=== PATIENT | female | born 1965 | race Two or more races ===

== ENCOUNTER 2017-06-05 12:33 | Inpatient (IN) | payer MEDICAID ==
[~2017-06-05] VITALS: Ht 154.9 cm; Wt 79.5 kg
[2017-06-05] MEDS ORDERED: SODIUM CHLORIDE 0.9% 500 ML IVB ONE (12:50)
[2017-06-05] MEDS ORDERED: PANTOPRAZOLE 40 MG/10 ML VIAL IV STA (12:50)
[2017-06-05] MEDS ORDERED: MORPHINE SULFATE 4 MG/ML SYR/VIAL IV ONE (13:00)
[2017-06-05] MEDS ORDERED: ONDANSETRON HCL 4 MG/2 ML VIAL IV ONE (13:00)
[2017-06-05 13:27] LABS: Hematocrit 25.3 % (36.0-46.0); Hemoglobin 7.1 g/dL (12.2-16.2); Mean Corpuscular Hemoglobin 16.7 pg (28.0-32.0); Mean Corpuscular Hgb Conc. 27.9 g/dL (32.0-36.0); Mean Corpuscular Volume 59.7 fL (80.0-100.0); Platelet Count (auto) 442 10^3/uL (140-450); Red Blood Cells 4.23 10^6/uL (4.0-5.20)
[2017-06-05 13:47] LABS: Albumin 3.8 g/dL (3.4-5.0); BUN/Creatinine Ratio 15.8; Bilirubin, Total 0.5 mg/dL (0.2-1.0); Calcium 9.2 mg/dL (8.5-10.1); Potassium 4.6 mmol/L (3.5-5.1)
[2017-06-05 13:50] LABS: Red Cell Distribution Width 26.7 % (11.8-14.3)
[2017-06-05 13:52] LABS: Basophils % (manual) 0 (0.0-2.0); Metamyelocytes % 0; Monocytes % (manual) 0 (0-12)
[2017-06-05 13:53] LABS: Blast Cells 0; Myelocytes % 0; Promyelocytes % 0; Reactive Lymphocytes 0
[2017-06-05 13:55] LABS: Band Neutrophils % (manual) 2; Eosinophils % (manual) 2 (0-7); Lymphocytes % (manual) 2 (10.0-50.0)
[2017-06-05] MEDS ORDERED: ONDANSETRON HCL 4 MG/2 ML VIAL IV PRN (14:45)
[2017-06-05] MEDS ORDERED: LEVOFLOXACIN 500MG 100 ML IV ONE (14:45)
[2017-06-05] MEDS ORDERED: MORPHINE SULFATE 4 MG/ML SYR/VIAL IV PRN ×2 (14:45)
[2017-06-05] MEDS ORDERED: NITROGLYCERIN 0.4 MG SL TAB SL PRN (14:45)
[2017-06-05] MEDS ORDERED: PANTOPRAZOLE 40 MG/10 ML VIAL IV ONE (14:45)
[2017-06-05 16:20] LABS: Lactic Acid w/Reflex 2.7 mmol/L (0.4-2.0)
[2017-06-05] MEDS: SODIUM CHLORIDE 0.9% 1,000 ML IV SCH ×2 (18:30→22:45)
[2017-06-05 18:45] LABS: Urine Bacteria NONE SEEN /hpf (None Seen); Urine Blood Negative /uL (Negative); Urine Specific Gravity 1.007 (1.001-1.035); Urine WBC 1 /hpf (0 - 5)
[2017-06-05] MEDS ORDERED: diphenhdrAMINE HCL 25 MG CAP PO ONE (21:00)
[2017-06-05 22:00] VITALS: BP 138/83
[2017-06-05] MEDS: metroNIDAZOLE 500MG/100ML 100 ML IV SCH (22:40)
[2017-06-06] VITALS (15 sets, daily range): BP systolic 110–144; BP diastolic 58–83
[2017-06-06] MEDS: SODIUM CHLORIDE 0.9% 1,000 ML IV SCH ×3 (06:14→21:29)
[2017-06-06] MEDS: metroNIDAZOLE 500MG/100ML 100 ML IV SCH ×3 (06:14→21:29)
[2017-06-06 07:59] LABS: Basophils # (auto) 0.1 uL; Eosinophils # (auto) 0.5 uL; INR 0.98 (0.9-1.15); Lymphocytes # (auto) 1.3 uL; Nucleated Red Blood Cells % 0.3 %; Partial Thromboplastin Time 21.6 sec (22.64-33.71); Prothrombin Time 10.7 sec (9.37-12.3)
[2017-06-06 08:01] LABS: Basophils % (auto) 0.6 % (0.0-2.0); Eosinophils % (auto) 5.8 % (0.0-7.0); Hematocrit 21.1 % (36.0-46.0); Mean Corpuscular Hgb Conc. 28.6 g/dL (32.0-36.0); Mean Corpuscular Volume 59.6 fL (80.0-100.0); Monocytes # (auto) 0.6 uL; Monocytes % (auto) 7.6 % (0.0-12.0); Platelet Count (auto) 333 10^3/uL (140-450); Red Blood Cells 3.55 10^6/uL (4.0-5.20); White Blood Cell 8.4 10^3/uL (4.4-10.8)
[2017-06-06 08:03] LABS: Potassium 3.9 mmol/L (3.5-5.1)
[2017-06-06 08:10] LABS: BUN/Creatinine Ratio 14.5; Calcium 8.4 mg/dL (8.5-10.1)
[2017-06-06 08:14] LABS: Red Cell Distribution Width 26.5 % (11.8-14.3)
[2017-06-06] MEDS ORDERED: LIDOCAINE VISCOUS 2% 15ML UD ONE (08:45)
[2017-06-06] MEDS ORDERED: diphenhdrAMINE HCL 50 MG/1 ML VL ONE (08:45)
[2017-06-06] MEDS ORDERED: fentaNYL CITRATE 100 MCG/2 ML VL ONE (08:45)
[2017-06-06] MEDS ORDERED: MIDAZOLAM HCL 5 MG/ML-1ML VIAL ONE (08:45)
[2017-06-06] MEDS: PANTOPRAZOLE 40 MG/10 ML VIAL IV SCH (09:41)
[2017-06-06] MEDS: LEVOFLOXACIN 500MG 100 ML IV SCH (09:41)
[2017-06-06 22:32] LABS: Basophils # (auto) 0.1 uL; Lymphocytes # (auto) 1.2 uL; Mean Corpuscular Hemoglobin 20.1 pg (28.0-32.0); Mean Corpuscular Hgb Conc. 30.5 g/dL (32.0-36.0); Monocytes # (auto) 0.8 uL; Neutrophils % (auto) 69.3 % (37.0-80.0); White Blood Cell 7.9 10^3/uL (4.4-10.8)
[2017-06-06 22:35] LABS: Basophils % (auto) 0.9 % (0.0-2.0); Eosinophils # (auto) 0.3 uL; Eosinophils % (auto) 4.2 % (0.0-7.0); Hematocrit 27.2 % (36.0-46.0); Hemoglobin 8.3 g/dL (12.2-16.2); Lymphocytes % (auto) 15.7 % (10.0-50.0); Mean Corpuscular Volume 65.9 fL (80.0-100.0); Monocytes % (auto) 9.9 % (0.0-12.0); Neutrophils # (auto) 5.5 uL; Nucleated Red Blood Cells % 0.1 %; Platelet Count (auto) 311 10^3/uL (140-450); Red Blood Cells 4.13 10^6/uL (4.0-5.20)
[2017-06-06 22:41] LABS: Red Cell Distribution Width 32.7 % (11.8-14.3)
[2017-06-07] MEDS: SODIUM CHLORIDE 0.9% 1,000 ML IV SCH ×2 (02:50→05:40)
[2017-06-07 05:00] VITALS: BP 132/76
[2017-06-07] MEDS: metroNIDAZOLE 500MG/100ML 100 ML IV SCH ×2 (05:40→13:42)
[2017-06-07 06:37] LABS: Basophils # (auto) 0.1 uL; Hematocrit 27.4 % (36.0-46.0); Hemoglobin 8.4 g/dL (12.2-16.2); Lymphocytes # (auto) 1.3 uL; Mean Corpuscular Hgb Conc. 30.7 g/dL (32.0-36.0); Mean Corpuscular Volume 65.6 fL (80.0-100.0); Neutrophils # (auto) 5.3 uL; Red Blood Cells 4.18 10^6/uL (4.0-5.20); White Blood Cell 7.8 10^3/uL (4.4-10.8)
[2017-06-07 06:42] LABS: INR 0.98 (0.9-1.15); Partial Thromboplastin Time 23.6 sec (22.64-33.71); Prothrombin Time 10.7 sec (9.37-12.3)
[2017-06-07 06:44] LABS: Basophils % (auto) 0.8 % (0.0-2.0); Eosinophils # (auto) 0.5 uL; Mean Corpuscular Hemoglobin 20.1 pg (28.0-32.0); Monocytes # (auto) 0.7 uL; Monocytes % (auto) 9.4 % (0.0-12.0); Neutrophils % (auto) 67.8 % (37.0-80.0); Nucleated Red Blood Cells % 0.2 %; Platelet Count (auto) 325 10^3/uL (140-450)
[2017-06-07 06:54] LABS: BUN/Creatinine Ratio 14.9; Calcium 8.2 mg/dL (8.5-10.1); Potassium 3.2 mmol/L (3.5-5.1)
[2017-06-07 09:00] VITALS: BP 127/75
[2017-06-07] MEDS: PANTOPRAZOLE 40 MG/10 ML VIAL IV SCH (10:51)
[2017-06-07] MEDS: LEVOFLOXACIN 500MG 100 ML IV SCH (10:52)
[2017-06-07] MEDS: FERROUS SULFATE 325 MG TAB PO SCH ×2 (12:00→18:03)
[2017-06-07] MEDS ORDERED: HYDROcodone-ACET 5/325MG TAB PO PRN (12:15)
[2017-06-07 13:00] VITALS: BP 124/76
[2017-06-07] MEDS ORDERED: POLY33504 PO (13:11)
[2017-06-07] MEDS ORDERED: LEVO500T21 PO (13:11)
[2017-06-07] MEDS ORDERED: FER325T PO (13:11)
[2017-06-07] MEDS ORDERED: METR500T PO (13:11)
[2017-06-07] MEDS ORDERED: DOCU100C8 PO (13:11)
[2017-06-07 17:02] VITALS: BP 119/59
[2017-06-07] MEDS ORDERED: DOCUSATE SOD 100 MG CAP PO SCH (22:00)
[2017-06-08 10:16] LABS: Folate (Folic Acid) 16.34 ng/mL (5.38-24)
== END 2017-06-07 19:00 | disposition home or self-care (01) | DRG 247 ==
LOC: ER 12:33 → OVERFLOW 12:34 → WEST WING 21:43
PROVIDERS: ADMIT Internal Medicine; ATTEND Internal Medicine
PROC: 0DJ08ZZ Inspection of Upper Intestinal Tract, Via Natural or Artificial Opening Endoscopic (ICD-10-PCS; 2017-06-05)
PROC: 30233N1 Transfusion of Nonautologous Red Blood Cells into Peripheral Vein, Percutaneous Approach (ICD-10-PCS; principal; 2017-06-06 14:22)
DX: K56.7 Ileus, unspecified (principal); R65.10 Systemic inflammatory response syndrome (SIRS) of non-infectious origin without acute organ dysfunction; D62 Acute posthemorrhagic anemia; M41.9 Scoliosis, unspecified; F17.210 Nicotine dependence, cigarettes, uncomplicated; D50.0 Iron deficiency anemia secondary to blood loss (chronic); K52.9 Noninfective gastroenteritis and colitis, unspecified; D25.9 Leiomyoma of uterus, unspecified; K44.9 Diaphragmatic hernia without obstruction or gangrene; N92.0 Excessive and frequent menstruation with regular cycle; Z90.49 Acquired absence of other specified parts of digestive tract
CPT/HCPCS: 36415; 43235; 74018; 74176; 80048; 80053; 81001; 82150; 82607; 82746; 83540; 83605; 83690; 83735; 84702; 85007; 85025; 85027; 85610; 85730; 86850; 86900; 86901; 86920; 87040; 93005; 94761; 96361; 96365; 96375; C9113; J1956; J2250; J2405; J3490

== ENCOUNTER 2023-07-27 18:51 | Emergency (ER) | payer MEDICAID ==
[~2023-07-27 18:51] MED LIST: DOCU-265 PO; FER325T PO; LEVO500T31 PO; METR500T PO; POLY33504 PO
== END 2023-07-27 20:28 | disposition left against medical advice (07) ==
LOC: ER 18:51
DX: R07.0 Pain in throat (principal); Z53.21 Procedure and treatment not carried out due to patient leaving prior to being seen by health care provider

== ENCOUNTER 2024-11-19 04:53 | Inpatient (IN) | payer MEDICAID ==
[~2024-11-19] VITALS: Ht 154.9 cm; Wt 94.0 kg
--- NOTE | 2024-11-19 06:19 | ECG ---
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
--- NOTE | 2024-11-19 06:22 | ECG ---
[facility] Test Date: 2024-11-19 Test Time: 05:09:25 Pat Name: KASHMIR FRIEDMAN Department: ED Room: 0273T Gender: F Lump Maker: lesly : 1965 Requested By: GENEVIEVE DEGROOT Order Number: [id number] Reading MD: Robert Lopez Measurements Intervals [place] Rate: 63 P: 41 SC: 162 QRS: -39 QRSD: 97 T: 29 QT: 434 QTc: 445 Interpretive Statements Sinus rhythm Left axis deviation Abnormal R-wave progression, late transition Electronically Signed On 11-20-2024 18:46:40 PDT by Robert Lopez Please click the below link to view image of tracing.
[2024-11-19 06:39] VITALS: PULSE 64; RESP 16; O2SAT 95
--- NOTE | 2024-11-19 07:50 | ED.PDOC ---
HPI Comments 59 y/o F, BIBA, with PMHx of anemia presents to the ED for CC of chest pain. EMS reports, patient is coming from home where she c/o left sided chest pain that radiates to her back sudden onset, 0430 this morning (11/19/24). Patient relays, pain was so intense it woke her up out of her sleep. In route to the ED, patient's blood pressure was elevated at 143/87mmHg with all other VSS. Patient was given 8mg of Nitro in the field and endorses experiencing relief, with pain going from an 8/10 to a 4/10. Patient denies shortness of breath, flu-like symptoms, nausea, vomiting, dizziness, weakness, or fatigue. No other symptoms or modifying factors are present at this time. Chief Complaint: Chest Pain Time Seen by MD: 06:30 Reviewed Notes: Nurses Notes, Camera Tuning Engineer Notes, Medications, Allergies Allergies: Coded Allergies: NO KNOWN ALLERGIES (Unverified , 06/05/17) Home Meds Active Scripts Polyethylene Glycol (MIRALAX 17GM PWD) 17 Gm Pw, 17 GM PO DAILY PRN, #14 DOSE Prov:VIRGINIA LU MD 06/07/17 Metronidazole (Flagyl) 500 Mg Tab, 500 MG PO TID, #21 TAB Prov:VIRGINIA LU MD 06/07/17 Levofloxacin (Levaquin) 500 Mg Tab, 500 MG PO DAILY, #7 TAB Prov:VIRGINIA LU MD 06/07/17 Docusate Sodium (Docusate Sodium) 100 Mg Cap, 100 MG PO BID, #60 CAP Prov:VIRGINIA LU MD 06/07/17 Ferrous Sulfate (Ferrous Sulfate) 325 Mg Tab, 325 MG PO TIDWM, #90 TAB Prov:VIRGINIA LU MD 06/07/17 Information Source: Patient, Emergency Med Personnel Mode of Arrival: EMS Severity: Moderate Timing: Hours Duration: Hours Prehospital treatment: None Location: Chest (L) Radiation: Back Onset: At Rest Cardiac Risk Factors: Smoker PE Risk Factors: None History of: None Modifying Factors: Nothing Associated Signs and Symptoms: None Past Medical History PAST MEDICAL HISTORY: Anemia Surgical History: BTL, Cholecystectomy ASSOCIATE 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 History: No Pertinent 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 History Family History Family History: Unknown Social History Smoker: Cigarettes Alcohol: Denies ETOH Use Drugs: Denies Drug Use Lives In: Home Constitutional: denies: chills, diaphoresis, fatigue, fever, malaise, sweats, weakness, others EENTM: denies: blurred vision, double vision, ear bleeding, ear discharge, ear drainage, ear pain, ear ringing, eye pain, eye redness, hearing loss, mouth pain, mouth swelling, nasal discharge, nose bleeding, nose congestion, nose pain, photophobia, tearing, throat pain, throat swelling, voice changes, others Respiratory: denies: cough, hemoptysis, orthopnea, SOB at rest, shortness of breath, SOB with excertion, stridor, wheezing, others Cardiovascular: reports: chest pain; denies: dizzy spells, diaphoresis, Dyspnea on exertion, edema, irregular heart beat, left arm pain, lightheadedness, palpitations, PND, syncope, others Gastrointestinal: denies: abdomen distended, abdominal pain, blood streaked bowels, constipated, diarrhea, dysphagia, difficulty swallowing, hematemesis, melena, nausea, poor appetite, poor fluid intake, rectal bleeding, rectal pain, vomiting, others Genitourinary: denies: abnormal vagina bleeding, burning, dyspareunia, dysuria, flank pain, frequency, hematuria, incontinence, pain, , vagina discharge, urgency, others Neurological: denies: dizziness, fainting, headache, left sided numbness, left sided weakness, numbness, paresthesia, pre-existing deficit, right sided numbness, right sided weakness, seizure, speech problems, tingling, tremors, weakness, others Musculoskeletal: denies: back pain, gout, joint pain, joint swelling, muscle pain, muscle stiffness, neck pain, others Integumetry: denies: bruises, change in color, change in hair/nails, dryness, laceration, lesions, lumps, rash, wounds, others Allergic/Immunocompromised: denies: Difficulty Healing, Frequent Infections, Hives, Itching, others Hematologic/Lymphatic: denies: anemia, blood clots, easy bleeding, easy bruising, swollen glands, others Endocrine: denies: excessive hunger, excessive sweating, excessive thirst, excessive urination, flushing, intolerance to cold, intolerance to heat, unexplained weight gain, unexplained weight loss, others Psychiatric: denies: anxiety, bipolar disorder, depression, hopeless, panic disorder, schizophrenia, sleepless, suicidal, others All Other Systems: Reviewed and Negative Physical Exam General Appearance: Moderate Distress HEENT: Normal ENT Inspection, Pharynx Normal, TMs Normal Neck: Full Range of Motion, Non-Tender, Normal, Normal Inspection Respiratory: Chest Non-Tender, Lungs Clear, No Accessory Muscle Use, No Respiratory Distress, Normal Breath Sounds Cardiovascular: No Edema, No JVD, No Murmur, No Gallop, Normal Peripheral Pulses, Regular Rate/Rhythm Breast Exam: Deferred Gastrointestinal: No Organomegaly, Non Tender, No Pulsatile Mass, Normal Bowel Sounds, Soft Genitalia: Deferred Pelvic: Deferred Rectal: Deferred Extremities: No calf tenderness, Normal capillary refill, Normal inspection, Normal range of motion, Non-tender, No pedal edema Musculoskeletal : Apperance: Normal Neurologic: Alert, cloth printing back tender II-XII nml as Tested, No Motor Deficits, Normal Affect, Normal Mood, No Sensory Deficits Cerebellar Function: Normal Reflexes: Normal Skin: Dry, Normal Color, Warm Peripheral Pulses: 3+ Radial (R), 3+ Radial (L) Lymphatic: No Adenopathy EKG EKG : Pulse Rate (adult): 63 Cardiac Rhythm: NSR Was a procedure done? Was a procedure done?: No CP Differential Dx Differential Diagnosis: A-fib, A-Flutter, Angina, Anxiety / Panic Attack, Atrial Dysrhythmia, Electrolyte Disorder Differential Diagnosis: Chest Wall Pain, Costochondritis, Esophageal reflux/spasm, Gastritis X-Ray, Labs, Meds, VS Vital Signs Date Time Temp Pulse Resp B/P (MAP) Pulse Ox O2 Delivery O2 Flow Rate FiO2 11/19/24 06:39 64 16 95 Room Air* 0 21 11/19/24 06:17 61 11/19/24 05:09 63 11/19/24 04:58 98.8 71 25 143/87 95 98.8 Lab Test 11/19/24 08:17 11/19/24 06:11 11/19/24 05:05 Range/Units White Blood Count Pending Red Blood Count Pending Hemoglobin Pending Hematocrit Pending Mean Corpuscular Volume Pending Mean Corpuscular Hemoglobin Pending Mean Corpuscular Hemoglobin Concent Pending Red Cell Distribution Width Pending Platelet Count Pending Mean Platelet Volume Pending Neutrophils (%) (Auto) Pending Lymphocytes (%) (Auto) Pending Monocytes (%) (Auto) Pending Basophils (%) (Auto) Pending Neutrophils # (Auto) Pending Lymphocytes # (Auto) Pending Monocytes # (Auto) Pending Sodium Level Pending Potassium Level Pending Chloride Level Pending Carbon Dioxide Level Pending Anion Gap Pending Blood Urea Nitrogen Pending Creatinine Pending Glomerular Filtration Rate Calc Pending BUN/Creatinine Ratio Pending Serum Glucose Pending Calcium Level Pending Troponin I High Sensitivity Pending < 3 L < 3 L </=34 ng/L Patient alert. Complaining of chest pain. Vitals stable. Answering questions. EKG reviewed does not show any acute changes. Cardiac marker within normal limits. Was given aspirin. Was given nitro. Counseled patient on effects of smoking cigarettes for 15 minutes. Has risk factors for coronary artery disease. Echocardiogram. Stress test. Explained to the patient. Continue to monitor. Time of 1ST Reevaluation: 07:00 Reevaluation 1ST: Unchanged Patient Education/Counseling: Diagnosis, Treatment Family Education/Counseling: No Family Present SEPSIS Sepsis Screen Date sepsis recognized/suspect: Nov 19, 2024 Time Sepsis recognized/suspect: 639 Recent Procedure: No On Antibiotic Therapy: No Respiratory Rate >20: No Heart Rate >90: No Temp<36 C (96.8 F) or >38.3 C: No SBP <90 or MAP <65 mmHG: No New Acute Mental Status Change: No Is the patient on CPAP, BIPAP,: No Physician Orders Troponin-I Hs (11/19/24 07:56) Electrocardigram (11/19/24 07:56) Complete Blood Count (11/19/24 07:20) Urinalysis (11/19/24 07:20) Basic Metabolic Panel (11/19/24 07:20) Vital Signs Date Time Temp Pulse Resp B/P (MAP) Pulse Ox O2 Delivery O2 Flow Rate FiO2 11/19/24 06:39 64 16 95 Room Air* 0 21 11/19/24 06:17 61 11/19/24 05:09 63 11/19/24 04:58 98.8 71 25 143/87 95 98.8 Laboratory Tests Test 11/19/24 08:17 White Blood Count Pending Departure 1 Departure Time of Disposition: 08:45 Impression: Primary Impression: Chest pain of unknown etiology Disposition: 09 ADMITTED INPATIENT Admit to: Med Surg Condition: Guarded Critical Care Note Critical Care Time?: Yes (90 min-critical care time only) Stability Stability form required: No Heart Score Heart Score: Heart Score Response (Comments) Value History Slightly Suspicious 0 EKG Normal 0 Age 45-64 1 Risk Factors 1 or 2 risk factors 1 Troponin N/A 0 Total 2 I personally scribed for RK MOREIRA MD ([email or web address]) on 11/19/24 at 07:50. E lectronically submitted by Stephanie Rand ([email or web address]). I personally scribed for RK MOREIRA MD ([email or web address]) on 11/19/24 at 07:59. Electronically submitted by Stephanie Rand ([email or web address]). RK MOREIRA MD Nov 19, 2024 07:50
[2024-11-19 08:49] LABS: Hematocrit 44.5 % (36.0-46.0); Hemoglobin 15.0 g/dL (12.2-16.2); Mean Corpuscular Hemoglobin 28.3 pg (28.0-32.0); Mean Corpuscular Volume 84.0 fL (80.0-100.0); Nucleated Red Blood Cells % 0.0 %
[2024-11-19 08:56] LABS: Chloride 106 mmol/L (98-107); Potassium 4.0 mmol/L (3.5-5.1); Sodium 141 mmol/L (136-145)
[2024-11-19 08:57] LABS: Anion Gap 10 (5-15); Calcium 9.5 mg/dL (8.7-10.4); Carbon Dioxide 25 mmol/L (20-31)
[2024-11-19 09:02] LABS: BUN/Creatinine Ratio 24.6 (10.0-20.0); Blood Urea Nitrogen 15 mg/dL (9-23); Glucose 98 mg/dL (74-106)
--- NOTE | 2024-11-19 09:22 | DVH ---
CHEST RADIOGRAPH Indication: sob Technique: Single frontal view of the chest was obtained COMPARISON: None FINDINGS: Lines and Tubes: None Lungs: Clear Pleura: No effusion. No pneumothorax. Cardiomediastinal contours: Unremarkable Bones: Unremarkable IMPRESSION: No acute disease.
[2024-11-19] MEDS: NITROGLYCERIN 0.4 MG SL TAB SL ONE (12:27)
[2024-11-19] MEDS ORDERED: ONDANSETRON HCL 4 MG/2 ML VIAL IV PRN (13:45)
[2024-11-19] MEDS ORDERED: ATOR20TA50 PO (13:45)
[2024-11-19] MEDS ORDERED: GABA-1250 PO (13:45)
[2024-11-19] MEDS ORDERED: CITA-77 PO (13:45)
[2024-11-19] MEDS ORDERED: NITROGLYCERIN 0.4 MG SL TAB SL PRN (13:45)
[2024-11-19] MEDS ORDERED: IBUP-1455 PO (13:45)
[2024-11-19] MEDS ORDERED: LOSA100T33 PO (13:45)
[2024-11-19] MEDS ORDERED: IBUPROFEN 800 MG TAB PO PRN (13:45)
[2024-11-19] MEDS ORDERED: ATEN25TA PO (13:45)
[2024-11-19] MEDS ORDERED: DOCUSATE SOD 100 MG CAP PO PRN (13:45)
[2024-11-19] MEDS ORDERED: MORPHINE SULFATE INJ 2 MG/ml SYRG IV PRN (13:45)
[2024-11-19] MEDS ORDERED: HYDROcodone-ACET 5/325MG TAB PO PRN (13:45)
--- NOTE | 2024-11-19 13:56 | DVHHP2 ---
History of Present Illness Reason for Visit: Chest pain History of Present Illness Mary Ellen Serrano is a 59-year-old female with past medical history of hypertension, hyperlipidemia, and anxiety, who came to the hospital with chest pain. Patient woke up to left sided chest pain that radiates to her left shoulder this morning. She states she has never had pain like this before. She also states her son recently, had a heart attack at the age of 37, so she became scared and came to the hospital to be evaluated. Currently she states her pain is improved, it feels more like an ache at this time. Cardiovascular: HTN, hyperipidemia Psych: Anxiety Past Surgical History: Cholecystectomy, Hysterectomy, Tubal Ligation Smoke: Quit (1 year ago) ALCOHOL: none Drugs: None Lives: Friends Domestic Violence: Neg Review of Systems Constitutional: No: Fever, Chills, Sweats, Weakness, Malaise, Other Eyes: No: Pain, Vision change, Conjunctivae inflammation, Eyelid inflammation, Other, Redness ENT: No: Ear pain, Ear discharge, Nose pain, Nose discharge, Nose congestion, Mouth pain, Mouth swelling, Throat pain, Throat swelling, Other Respiratory: No: Cough, Dry, Shortness of breath, SOB with excertion, Wheezing, Hemoptysis, Pleuritic Pain, Sputum, Wheezing, Other Cardiovascular: Chest Pain (radiated to left shoulder); No: Palpitations, Orthopnea, Paroxysmal Noc. Dyspnea, Edema, Lt Headedness, Other Gastrointestinal: No: Nausea, Vomiting, Abdominal Pain, Diarrhea, Constipation, Melena, Hematochezia, Other Genitourinary: No Dysuria, No Frequency, No Incontinence, No Hematuria, No Retention, No Other Musculoskeletal: No: other, neck pain, shoulder pain, arm pain, back pain, hand pain, leg pain, foot pain Skin: No: Rash, Lesions, Jaundice, Bruising, Other Neurological: No: Weakness, Numbness, Incoordination, Change in speech, Confusion, Seizures, Other Allergies: Coded Allergies: NO KNOWN ALLERGIES (Unverified , 06/05/17) Medications Current Medications Medications Dose Ordered Sig/Mechelle Route Start Time Stop Time Status Last Admin Dose Admin Sodium Chloride 10 ml Q8HR IV 11/19/24 14:00 UNV Acetaminophen/ Hydrocodone Bitart 1 tab Q4HP PRN PO 11/19/24 13:45 UNV Ondansetron HCl 4 mg Q4HP PRN IV 11/19/24 13:45 UNV Docusate Sodium 100 mg BIDPRN PRN PO 11/19/24 13:45 UNV Acetaminophen 650 mg Q6HP PRN PO 11/19/24 13:45 UNV Nitroglycerin 0.4 mg Q5MINP PRN SL 11/19/24 13:45 UNV Morphine Sulfate 2 mg Q30M PRN IV 11/19/24 13:45 UNV Atenolol 25 mg DAILY PO 11/20/24 10:00 UNV Atorvastatin Calcium 20 mg DAILY PO 11/20/24 10:00 UNV Citalopram Hydrobromide 20 mg DAILY PO 11/20/24 10:00 UNV Ibuprofen 800 mg BIDPRN PRN PO 11/19/24 13:45 UNV Patient Own Medication 1 tab DAILY PO 11/20/24 10:00 UNV Exam Vital Signs Vital Signs Date Time Temp Pulse Resp B/P (MAP) Pulse Ox O2 Delivery O2 Flow Rate FiO2 11/19/24 12:29 68 16 160/90 (113) 96 11/19/24 06:39 Room Air* 0 21 11/19/24 04:58 98.8 98.8 General Appearance: Alert, Oriented X3, Cooperative, mild distress HEENT: Atraumatic, PERRLA Respiratory: Clear to auscultation, Normal air movement Cardiovascular: Regular rate, Normal S1, Normal S2, No murmurs Abdominal: Normal bowel sounds, Soft, No tenderness, No hepatospenomegaly Extremities: No clubbing, No cyanosis, No edema, Normal pulses Skin: No rashes, No breakdown, No significant lesion Neuro: Normal gait, Normal speech, Strength at 5/5 X4 ext Psych/Mental Status: Mental status NL, Mood NL Labs/Xrays Labs Test 11/19/24 08:17 Range/Units White Blood Count 8.5 4.4-10.8 10^3/uL Red Blood Count 5.30 H 4.0-5.20 10^6/uL Hemoglobin 15.0 12.2-16.2 g/dL Hematocrit 44.5 36.0-46.0 % Mean Corpuscular Volume 84.0 80.0-100.0 fL Mean Corpuscular Hemoglobin 28.3 28.0-32.0 pg Mean Corpuscular Hemoglobin Concent 33.6 32.0-36.0 g/dL Red Cell Distribution Width 14.9 H 11.8-14.3 % Platelet Count 338 140-450 10^3/uL Mean Platelet Volume 8.3 6.9-10.8 fL Neutrophils (%) (Auto) 58.8 37.0-80.0 % Lymphocytes (%) (Auto) 29.7 10.0-50.0 % Monocytes (%) (Auto) 7.1 0.0-12.0 % Eosinophils (%) (Auto) 3.5 0.0-7.0 % Basophils (%) (Auto) 0.9 0.0-2.0 % Neutrophils # (Auto) 5.0 1.6-8.6 10 ^3/uL Lymphocytes # (Auto) 2.5 0.4-5.4 10 ^3/uL Monocytes # (Auto) 0.6 0-1.3 10 ^3/uL Eosinophils # (Auto) 0.3 0-0.8 10 ^3/uL Basophils # (Auto) 0.1 0-0.2 10 ^3/uL Nucleated Red Blood Cells 0.0 % Sodium Level 141 136-145 mmol/L Potassium Level 4.0 3.5-5.1 mmol/L Chloride Level 106 98-107 mmol/L Carbon Dioxide Level 25 20-31 mmol/L Anion Gap 10 5-15 Blood Urea Nitrogen 15 9-23 mg/dL Creatinine 0.61 0.550-1.02 mg/dL Glomerular Filtration Rate Calc 104 >90 mL/min BUN/Creatinine Ratio 24.6 H 10.0-20.0 Serum Glucose 98 74-106 mg/dL Calcium Level 9.5 8.7-10.4 mg/dL Troponin I High Sensitivity < 3 L </=34 ng/L CHEST RADIOGRAPH FINDINGS: Lines and Tubes: None Lungs: Clear Pleura: No effusion. No pneumothorax. Cardiomediastinal contours: Unremarkable Bones: Unremarkable IMPRESSION: No acute disease. SEPSIS Sepsis Screen Date sepsis recognized/suspect: Nov 19, 2024 Time Sepsis recognized/suspect: 639 Recent Procedure: No On Antibiotic Therapy: No Respiratory Rate >20: No Heart Rate >90: No Temp<36 C (96.8 F) or >38.3 C: No SBP <90 or MAP <65 mmHG: No New Acute Mental Status Change: No Is the patient on CPAP, BIPAP,: No Physician Orders Urinalysis (11/19/24 07:20) Chest Portable (11/19/24 08:48) Echo 2d Mode Cardiac Dop (11/19/24 08:48) Admit (11/19/24 13:37) Code Status (11/19/24 13:37) 2 Gm Sodium Diet (11/19/24 Dinner) Sodium Chloride Lock (Saline Lock Ns) (11/19/24 14:00) Hydrocodone-Acet 5/325mg Tab (Glide 5/32 (11/19/24 13:45) Ondansetron Hcl (Zofran) (11/19/24 13:45) Docusate Sodium Capsule (Colace Capsule) (11/19/24 13:45) Complete Blood Count (11/20/24 04:00) Comprehensive Metabolic Panel (11/20/24 04:00) Condition: Serious (11/19/24 13:37) Acetaminophen Tablet (Tylenol Tablet) (11/19/24 13:45) Nitroglycerin Sublingual (Ntrostat Subli (11/19/24 13:45) Morphine Sulfate Injection (11/19/24 13:45) Stat Ekg For Chest Pain (11/19/24 13:37) Notify Md Of Changes From Base (11/19/24 13:37) River Tester For 24 Hours (11/19/24 13:37) Emergency Dysrhythmia Protocol (11/19/24 13:37) Rhythm Strips Once Every Shift (11/19/24 13:37) Oxygen By Nasal Cannula (11/19/24 13:37) * Cardiology Consult (11/19/24 13:37) Atenolol Tablet (Tenormin Tablet) (11/20/24 10:00) Atorvastatin (Lipitor) (11/20/24 10:00) Citalopram Tablet (Celexa Tablet) (11/20/24 10:00) Ibuprofen Tablet (Motrin Tablet) (11/19/24 13:45) (Nf) Losartan Potassium & Hydrochlo (Los (11/20/24 10:00) Gabapentin Capsule (Neurontin Capsule) (11/20/24 10:00) Vital Signs Date Time Temp Pulse Resp B/P (MAP) Pulse Ox O2 Delivery O2 Flow Rate FiO2 11/19/24 12:29 68 16 160/90 (113) 96 11/19/24 08:46 63 11/19/24 06:39 64 16 95 Room Air* 0 21 11/19/24 06:17 61 Laboratory Tests Test 11/19/24 08:17 White Blood Count 8.5 10^3/uL (4.4-10.8) Medications Medications Dose Ordered Sig/Mechelle Route Start Time Stop Time Status Last Admin Dose Admin Aspirin 325 mg ONCE ONCE PO 11/19/24 07:30 11/19/24 07:31 DC 11/19/24 12:27 325 MG Assessment/Plan Assessment/Plan Assessment: Chest pain of unknown etiology, R/O ACS, Hypertension, Hyperlipidemia, Plan: Admit to Tele, Cardiology consult, ECHO, Start ASA, Continue statin, Lipid panel, TSH, A1c, Home medications reconciled, Plan discussed with: Patient My Orders Orders - SALVADOR HONG 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 Procedure Category Date Status Time Admit ADMIT 11/19/24 Transmitted 13:37 Code Status CODE 11/19/24 Transmitted 13:37 2 Gm Sodium Diet DIET 11/19/24 Transmitted Dinner Sodium Chloride Lock PHA 11/19/24 Logged (Saline Lock Ns) 14:00 Hydrocodone-Acet PHA 11/19/24 Logged 5/325mg Tab (Glide 13:45 Ondansetron Hcl PHA 11/19/24 Logged (Zofran) 13:45 Docusate Sodium PHA 11/19/24 Logged Capsule (Colace 13:45 Complete Blood Count LAB 11/20/24 Verified 04:00 Comprehensive LAB 11/20/24 Verified Metabolic Panel 04:00 Condition: Serious PAVITHRA 11/19/24 In Process 13:37 Acetaminophen Tablet PHA 11/19/24 Logged (Tylenol Tablet) 13:45 Nitroglycerin PHA 11/19/24 Logged Sublingual (Ntrostat 13:45 Morphine Sulfate PHA 11/19/24 Logged Injection 13:45 Stat Ekg For Chest [facility] 11/19/24 In Process Pain 13:37 Notify Of Changes [facility] 11/19/24 In Process From Base 13:37 River Tester For PAVITHRA 11/19/24 In Process 24 Hours 13:37 Emergency Dysrhythmia [facility] 11/19/24 In Process Protocol 13:37 Rhythm Strips Once PAVITHRA 11/19/24 In Process Every Shift 13:37 Oxygen By Nasal RT 11/19/24 Transmitted Cannula 13:37 * Cardiology Consult CONS 11/19/24 Transmitted 13:37 Atenolol Tablet PHA 11/20/24 Logged (Tenormin Tablet) 10:00 Atorvastatin (Lipitor) PHA 11/20/24 Logged 10:00 Citalopram Tablet PHA 11/20/24 Logged (Celexa Tablet) 10:00 Ibuprofen Tablet PHA 11/19/24 Transmitted (Motrin Tablet) 13:45 (Nf) Losartan PHA 11/20/24 Transmitted Potassium & Hydrochlo 10:00 Gabapentin Capsule PHA 11/20/24 Transmitted (Neurontin Capsule) 10:00 Date of Service: Nov 19, 2024 Billing Provider: SALVADOR HONG Common Visit Codes: [id number] INP/OBS CARE (MOD) SALVADOR HONG Nov 19, 2024 13:56
[2024-11-19] MEDS: SODIUM CHLOR 0.9% PF (SALINE LOCK) 10ML VIAL/SYR IV SCH (14:02)
--- NOTE | 2024-11-19 14:44 | DVHINCON2 ---
Date Seen: Nov 19, 2024 Referring Physician YONATHAN Rubi Reason for Consultation Chest pain History of Present Illness This is a 59-year-old female who presented to the emergency room via EMS with a chief complaint of chest pain at 4:30 a.m. this morning. The patient reports she awoke from her sleep experiencing chest pain described as left-sided, soreness like, not associated with any other symptoms, and radiating to the left upper extremity, left neck area, and left upper back. Upon EMS arrival she was medicated with ASA 325 mg p.o. x1 and NTG SL 0.8 mg with successful relief of symptoms. At time of assessment, the patient denied any further chest pain. She underwent multiple 12 lead electrocardiograms revealing a sinus rhythm without evidence of acute ischemia. Serial troponin levels are negative. Reports her son had an acute [place] with successful stent placement at 37 y.o. with history of obesity and type I DM. Significant medical history includes hypertension, dyslipidemia, peripheral neuropathy, and obesity. Past Medical History Past medical history reviewed. No other significant than mentioned above. Past Surgical History Hysterectomy BTL Cholecystectomy Family History: FH: diabetes mellitus G8 MOTHER Family History Family history reviewed. See HPI. Denies CV disease from parents or siblings. Social History Denies the use of illicit drugs, alcohol, or tobacco use. Reports a history of tobacco use including five pack years, quit a year ago. Allergies: Coded Allergies: NO KNOWN ALLERGIES (Unverified , 06/05/17) Home Meds Reported Medications Losartan Potassium & Hydrochlo (Losartan Potassium/Hydroc) 1 Tab Tab, 1 TAB PO DAILY, #30 TAB 5 Refills 11/19/24 Gabapentin (Gabapentin) 300 Mg Cap, 1 CAP PO DAILY 11/19/24 Atorvastatin Calcium (ATORVASTATIN CALCIUM) 20 Mg Tab, 1 TAB PO DAILY 11/19/24 Atenolol (Atenolol) 25 Mg Tab, 1 TAB PO DAILY 11/19/24 Ibuprofen Micronized (Ibuprofen) 800 Mg Tab, 1 TAB PO BIDPRN PRN 11/19/24 Citalopram Hydrobromide (Citalopram Hydrobromide) 20 Mg Tab, 1 TAB PO DAILY 11/19/24 Discontinued Scripts Polyethylene Glycol (MIRALAX 17GM PWD) 17 Gm Pw, 17 GM PO DAILY PRN, #14 DOSE Prov:VIRGINIA LU MD 06/07/17 Metronidazole (Flagyl) 500 Mg Tab, 500 MG PO TID, #21 TAB Prov:VIRGINIA LU MD 06/07/17 Levofloxacin (Levaquin) 500 Mg Tab, 500 MG PO DAILY, #7 TAB Prov:VIRGINIA LU MD 06/07/17 Docusate Sodium (Docusate Sodium) 100 Mg Cap, 100 MG PO BID, #60 CAP Prov:VIRGINIA LU MD 06/07/17 Ferrous Sulfate (Ferrous Sulfate) 325 Mg Tab, 325 MG PO TIDWM, #90 TAB Prov:VIRGINIA LU MD 06/07/17 Home Meds Home medications reviewed. Current Medications Current Medications Medications (Trade) Dose Ordered Sig/Mechelle Route PRN Reason Start Time Stop Time Status Last Admin Sodium Chloride (Saline Lock Ns) 10 ml Q8HR IV 11/19/24 14:00 11/19/24 14:02 Acetaminophen/ Hydrocodone Bitart ([place] 5/325MG Tab) 1 tab Q4HP PRN PO MODERATE PAIN (4-6 PAIN SCALE) 11/19/24 13:45 Ondansetron HCl (Zofran) 4 mg Q4HP PRN IV NAUSEA / VOMITING 11/19/24 13:45 Docusate Sodium (Colace Capsule) 100 mg BIDPRN PRN PO FOR CONSTIPATION 11/19/24 13:45 Acetaminophen (Tylenol Tablet) 650 mg Q6HP PRN PO PAIN SCALE 1-3 OR TEMP>100.4 11/19/24 13:45 Nitroglycerin (Ntrostat Sublingual) 0.4 mg Q5MINP PRN SL FOR CHEST PAIN 11/19/24 13:45 Morphine Sulfate 2 mg Q30M PRN IV FOR CHEST PAIN 11/19/24 13:45 Atenolol (Tenormin Tablet) 25 mg DAILY PO 11/20/24 10:00 Atorvastatin Calcium (Lipitor) 20 mg DAILY PO 11/20/24 10:00 Citalopram Hydrobromide (CeleXA TABLET) 20 mg DAILY PO 11/20/24 10:00 Ibuprofen (Motrin Tablet) 800 mg BIDPRN PRN PO PAIN SCALE 1 THRU 6 11/19/24 13:45 Patient Own Medication 1 tab DAILY PO 11/20/24 10:00 UNV Gabapentin (Neurontin Capsule) 300 mg DAILY PO 11/20/24 10:00 Losartan Potassium (Cozaar Tablet) 100 mg DAILY PO 11/20/24 10:00 Hydrochlorothiazide (hydroCHLOROthiazide TABLET) 12.5 mg DAILY PO 11/20/24 10:00 Review of Systems Constitutional: No symptom reported Ears, Nose, & Throat: No symptom reported Eyes: No symptom reported Neurological: No symptoms reported Pulmonary/Respiratory: No symptom reported Cardiovascular: Chest pain Gastrointestinal: No symptom reported Genitourinary: No symptom reported Musculoskeletal: No symptom reported Skin: No symptom reported Psychiatric: No symptom reported Endocrine: No symptom reported Hemotologic/Lymphatic: No symptom reported Vital Signs Vital Signs Date Time Temp Pulse Resp B/P (MAP) Pulse Ox O2 Delivery O2 Flow Rate FiO2 11/19/24 12:29 68 16 160/90 (113) 96 11/19/24 06:39 Room Air* 0 21 11/19/24 04:58 98.8 98.8 Physical Exam General Appearance: Cooperative. Well developed. Obese. In no acute distress Head Exam: Normal inspection Neck Exam: Normal inspection. Non-tender. Normal alignment Pulmonary/Respiratory: Chest non-tender. Clear bilateral breath sounds Cardiovascular/Chest: Regular rate and rhythm. S1, S2. Sinus rhythm. No murmurs. No JVD. Peripheral Pulses: 2+ Radial (R). 2+ Radial (L). 2+ Pedal (R). 2+ Pedal (L) Abdominal Exam: Normal bowel sounds. Soft. Nontender. No hepatospenomegaly. No masses Ankle Exam: Negative ankle edema Lower extremities: Negative lower extremity edema Neuro/Mental Status: A&O x4. Coherent Thoughts/Psych: Normal thought pattern. Appropriate mood and affect. Good judgement and insight Appearance: In no acute distress Skin Exam: Normal inspection. Normal color. Warm. Dry Labs/Diagnostic Data Labs Test 11/19/24 08:17 Range/Units White Blood Count 8.5 4.4-10.8 10^3/uL Red Blood Count 5.30 H 4.0-5.20 10^6/uL Hemoglobin 15.0 12.2-16.2 g/dL Hematocrit 44.5 36.0-46.0 % Mean Corpuscular Volume 84.0 80.0-100.0 fL Mean Corpuscular Hemoglobin 28.3 28.0-32.0 pg Mean Corpuscular Hemoglobin Concent 33.6 32.0-36.0 g/dL Red Cell Distribution Width 14.9 H 11.8-14.3 % Platelet Count 338 140-450 10^3/uL Mean Platelet Volume 8.3 6.9-10.8 fL Neutrophils (%) (Auto) 58.8 37.0-80.0 % Lymphocytes (%) (Auto) 29.7 10.0-50.0 % Monocytes (%) (Auto) 7.1 0.0-12.0 % Eosinophils (%) (Auto) 3.5 0.0-7.0 % Basophils (%) (Auto) 0.9 0.0-2.0 % Neutrophils # (Auto) 5.0 1.6-8.6 10 ^3/uL Lymphocytes # (Auto) 2.5 0.4-5.4 10 ^3/uL Monocytes # (Auto) 0.6 0-1.3 10 ^3/uL Eosinophils # (Auto) 0.3 0-0.8 10 ^3/uL Basophils # (Auto) 0.1 0-0.2 10 ^3/uL Nucleated Red Blood Cells 0.0 % Sodium Level 141 136-145 mmol/L Potassium Level 4.0 3.5-5.1 mmol/L Chloride Level 106 98-107 mmol/L Carbon Dioxide Level 25 20-31 mmol/L Anion Gap 10 5-15 Blood Urea Nitrogen 15 9-23 mg/dL Creatinine 0.61 0.550-1.02 mg/dL Glomerular Filtration Rate Calc 104 >90 mL/min BUN/Creatinine Ratio 24.6 H 10.0-20.0 Serum Glucose 98 74-106 mg/dL Calcium Level 9.5 8.7-10.4 mg/dL Troponin I High Sensitivity < 3 L </=34 ng/L Assessment Chest pain rule out coronary artery disease Rule out structural heart disease Hypertension Dyslipidemia Hx tobacco use Obesity Plan/Recommendation (Dr. Richardson) Heart Score is 4 placing the patient at a moderate risk for major cardiac events. Scheduled for a transthoracic echocardiogram and Cardiolite stress test at first available. In the meantime, continue single antiplatelet therapy and lipid lowering agent as well as chest pain protocol. Monitor ECG changes closely and notify accordingly. Further orders per clinical course. Thank you for allowing us to participate in this patient's care. Please call if you have any questions or concerns. This medical document was created using an electronic medical record system with voice recognition software and computerized dictation system. Although this document has been carefully reviewed, there might still be some phonetic and typographical errors. Occasional wrong-word or ``sound-alike substitutions may have occurred due to the inherent limitations of voice recognition software. These areas are purely typographical due to imperfections of the software programs and do not reflect any compromise in the patient's medical care. Please read the chart carefully and recognize, using context, where these substitutions have occurred. Plan discussed with: Patient, Other NYHA Physical activity limitations: NA Date of Service: Nov 19, 2024 Billing Provider: MANDI RYAN Cardiology Common Codes: 70514-[id number] INP/OBS CARE (High) MANDI RYAN Nov 19, 2024 14:44
[2024-11-19 15:28] VITALS: BP 151/83; PULSE 75; RESP 18; TEMP 97.9; O2SAT 94
[2024-11-19 15:58] LABS: Magnesium 1.8 mg/dL (1.6-2.6); Triglycerides 313.0 mg/dL (< 150)
[2024-11-19 15:59] LABS: Cholesterol 200.0 mg/dL (< 200); HDL Cholesterol 39.0 mg/dL (40-59)
[2024-11-19 19:56] VITALS: BP 146/93; PULSE 81; RESP 18; TEMP 98.2
[2024-11-19] MEDS: ATORVASTATIN 20 MG TAB PO SCH (21:43)
[2024-11-19 22:18] VITALS: BP 140/75; PULSE 74; RESP 17; TEMP 98.1; O2SAT 94
--- NOTE | 2024-11-19 23:40 | DVHINCON2 ---
Date Seen: Nov 19, 2024 Referring Physician YONATHAN Rubi Reason for Consultation Chest pain History of Present Illness This is a 59-year-old female with a PMH of hypertension, dyslipidemia, peripheral neuropathy, and obesity who presented to the ED via EMS with complaint of chest pain at 4:30 a.m. this morning. The patient reports she awoke from her sleep experiencing chest pain described as left-sided, soreness like, not associated with any other symptoms, and radiating to the left upper extremity, left neck area, and left upper back. Upon EMS arrival she was medicated with ASA 325 mg p.o. x1 and NTG SL 0.8 mg with successful relief of symptoms. At time of assessment, the patient denied any further chest pain. She underwent multiple 12 lead electrocardiograms revealing a sinus rhythm without evidence of acute ischemia. Serial troponin levels are negative. Reports her son had an acute [place] with successful stent placement at 39 y.o. with history of obesity and type I DM. Chest x-ray shows NAD. Patient was admitted to the hospital. I am asked to consult on this patient. Past Medical History Past medical history reviewed. No other significant than mentioned above. Past Surgical History Hysterectomy BTL Cholecystectomy Family History: FH: diabetes mellitus G8 MOTHER Allergies: Coded Allergies: NO KNOWN ALLERGIES (Unverified , 06/05/17) Home Meds Reported Medications Losartan Potassium & Hydrochlo (Losartan Potassium/Hydroc) 1 Tab Tab, 1 TAB PO DAILY, #30 TAB 5 Refills 11/19/24 Gabapentin (Gabapentin) 300 Mg Cap, 1 CAP PO DAILY 11/19/24 Atorvastatin Calcium (ATORVASTATIN CALCIUM) 20 Mg Tab, 1 TAB PO DAILY 11/19/24 Atenolol (Atenolol) 25 Mg Tab, 1 TAB PO DAILY 11/19/24 Ibuprofen Micronized (Ibuprofen) 800 Mg Tab, 1 TAB PO BIDPRN PRN 11/19/24 Citalopram Hydrobromide (Citalopram Hydrobromide) 20 Mg Tab, 1 TAB PO DAILY 11/19/24 Discontinued Scripts Polyethylene Glycol (MIRALAX 17GM PWD) 17 Gm Pw, 17 GM PO DAILY PRN, #14 DOSE Prov:VIRGINIA LU MD 06/07/17 Metronidazole (Flagyl) 500 Mg Tab, 500 MG PO TID, #21 TAB Prov:VIRGINIA LU MD 06/07/17 Levofloxacin (Levaquin) 500 Mg Tab, 500 MG PO DAILY, #7 TAB Prov:VIRGINIA LU MD 06/07/17 Docusate Sodium (Docusate Sodium) 100 Mg Cap, 100 MG PO BID, #60 CAP Prov:VIRGINIA LU MD 06/07/17 Ferrous Sulfate (Ferrous Sulfate) 325 Mg Tab, 325 MG PO TIDWM, #90 TAB Prov:VIRGINIA LU MD 06/07/17 Current Medications Current Medications Medications (Trade) Dose Ordered Sig/Mechelle Route PRN Reason Start Time Stop Time Status Last Admin Sodium Chloride (Saline Lock Ns) 10 ml Q8HR IV 11/19/24 14:00 11/19/24 21:43 Acetaminophen/ Hydrocodone Bitart ([place] 5/325MG Tab) 1 tab Q4HP PRN PO MODERATE PAIN (4-6 PAIN SCALE) 11/19/24 13:45 Ondansetron HCl (Zofran) 4 mg Q4HP PRN IV NAUSEA / VOMITING 11/19/24 13:45 Docusate Sodium (Colace Capsule) 100 mg BIDPRN PRN PO FOR CONSTIPATION 11/19/24 13:45 Acetaminophen (Tylenol Tablet) 650 mg Q6HP PRN PO PAIN SCALE 1-3 OR TEMP>100.4 11/19/24 13:45 Nitroglycerin (Ntrostat Sublingual) 0.4 mg Q5MINP PRN SL FOR CHEST PAIN 11/19/24 13:45 Morphine Sulfate 2 mg Q30M PRN IV FOR CHEST PAIN 11/19/24 13:45 Atenolol (Tenormin Tablet) 25 mg DAILY PO 11/20/24 10:00 Atorvastatin Calcium (Lipitor) 20 mg DAILY PO 11/20/24 10:00 11/19/24 14:42 DC Citalopram Hydrobromide (CeleXA TABLET) 20 mg DAILY PO 11/20/24 10:00 Ibuprofen (Motrin Tablet) 800 mg BIDPRN PRN PO PAIN SCALE 1 THRU 6 11/19/24 13:45 Patient Own Medication 1 tab DAILY PO 11/20/24 10:00 UNV Gabapentin (Neurontin Capsule) 300 mg DAILY PO 11/20/24 10:00 Losartan Potassium (Cozaar Tablet) 100 mg DAILY PO 11/20/24 10:00 Hydrochlorothiazide (hydroCHLOROthiazide TABLET) 12.5 mg DAILY PO 11/20/24 10:00 Atorvastatin Calcium (Lipitor) 40 mg HS PO 11/19/24 22:00 11/19/24 21:43 Aspirin 81 mg DAILY PO 11/20/24 10:00 Review of Systems Constitutional: No symptom reported Ears, Nose, & Throat: No symptom reported Eyes: No symptom reported Neurological: No symptoms reported Pulmonary/Respiratory: No symptom reported Cardiovascular: Chest pain Gastrointestinal: No symptom reported Genitourinary: No symptom reported Musculoskeletal: No symptom reported Skin: No symptom reported Psychiatric: No symptom reported Endocrine: No symptom reported Hemotologic/Lymphatic: No symptom reported Vital Signs Vital Signs Date Time Temp Pulse Resp B/P (MAP) Pulse Ox O2 Delivery O2 Flow Rate FiO2 11/19/24 22:25 Room Air* 0 21 11/19/24 22:18 98.1 74 17 140/75 (96) 94 98.1 Physical Exam GENERAL: Alert and oriented x 3. No acute distress. Obese. EYES: PERRL, EOMI. Anicteric. HENT: Moist mucous membranes. LUNGS: Clear to auscultation bilaterally. CARDIOVASCULAR: Regular rate and rhythm. ABDOMEN: Soft, non-tender and non-distended. EXTREMITIES: No edema. NEUROLOGIC: No focal neurological deficits. SKIN: Warm, dry. Labs/Diagnostic Data Labs Test 11/19/24 08:17 11/19/24 06:11 11/19/24 05:05 Range/Units White Blood Count 8.5 4.4-10.8 10^3/uL Red Blood Count 5.30 H 4.0-5.20 10^6/uL Hemoglobin 15.0 12.2-16.2 g/dL Hematocrit 44.5 36.0-46.0 % Mean Corpuscular Volume 84.0 80.0-100.0 fL Mean Corpuscular Hemoglobin 28.3 28.0-32.0 pg Mean Corpuscular Hemoglobin Concent 33.6 32.0-36.0 g/dL Red Cell Distribution Width 14.9 H 11.8-14.3 % Platelet Count 338 140-450 10^3/uL Mean Platelet Volume 8.3 6.9-10.8 fL Neutrophils (%) (Auto) 58.8 37.0-80.0 % Lymphocytes (%) (Auto) 29.7 10.0-50.0 % Monocytes (%) (Auto) 7.1 0.0-12.0 % Eosinophils (%) (Auto) 3.5 0.0-7.0 % Basophils (%) (Auto) 0.9 0.0-2.0 % Neutrophils # (Auto) 5.0 1.6-8.6 10 ^3/uL Lymphocytes # (Auto) 2.5 0.4-5.4 10 ^3/uL Monocytes # (Auto) 0.6 0-1.3 10 ^3/uL Eosinophils # (Auto) 0.3 0-0.8 10 ^3/uL Basophils # (Auto) 0.1 0-0.2 10 ^3/uL Nucleated Red Blood Cells 0.0 % Sodium Level 141 136-145 mmol/L Potassium Level 4.0 3.5-5.1 mmol/L Chloride Level 106 98-107 mmol/L Carbon Dioxide Level 25 20-31 mmol/L Anion Gap 10 5-15 Blood Urea Nitrogen 15 9-23 mg/dL Creatinine 0.61 0.550-1.02 mg/dL Glomerular Filtration Rate Calc 104 >90 mL/min BUN/Creatinine Ratio 24.6 H 10.0-20.0 Serum Glucose 98 74-106 mg/dL Hemoglobin A1c 5.9 H <5.7 % A1C Calcium Level 9.5 8.7-10.4 mg/dL Troponin I High Sensitivity < 3 L </=34 ng/L B-Type Natriuretic Peptide 23.84 0-100 pg/mL Thyroid Stimulating Hormone (TSH) 1.59 0.55-4.78 uIU/mL Magnesium Level 1.8 1.6-2.6 mg/dL Triglycerides Level 313 H < 150 mg/dL Cholesterol Level 200 H < 200 mg/dL LDL Cholesterol 122 H < 100 mg/dL HDL Cholesterol 39 L 40-59 mg/dL Assessment Chest pain rule out coronary artery disease. Rule out structural heart disease. Hypertension. Dyslipidemia. History of tobacco use. Obesity. Plan/Recommendation I agree with your ongoing assessment and care of plan. Patient has been seen by Ivonne Hebert NP on my behalf. We have discussed the plan with the patient. Heart Score is 4 placing the patient at a moderate risk for major cardiac events. Scheduled for a transthoracic echocardiogram and Cardiolite stress test at first available. In the meantime, continue single antiplatelet therapy and lipid lowering agent as well as chest pain protocol. Monitor ECG changes closely and notify accordingly. Additional plan as per the hospital course. Plan discussed with: Patient NYHA Physical activity limitations: NA Date of Service: Nov 19, 2024 Billing Provider: TAWNY CAMP MD Cardiology Common Codes: [id number] INP/OBS CARE (High) Cardiology Consultation Codes: [id number] CONSULT <45MIN TAWNY CAMP MD Nov 19, 2024 23:40
[2024-11-20] VITALS (8 sets, daily range): BP systolic 124–149; BP diastolic 70–93; PULSE 61–81; RESP 16–20; TEMP 97.8–98.2; O2SAT 95–100
[2024-11-20 05:57] LABS: Hematocrit 41.8 % (36.0-46.0); Hemoglobin 14.0 g/dL (12.2-16.2); Mean Corpuscular Hemoglobin 28.4 pg (28.0-32.0); Mean Corpuscular Volume 84.9 fL (80.0-100.0); Nucleated Red Blood Cells % 0.1 %
[2024-11-20 06:18] LABS: Alanine Aminotransferase 20 U/L (7-40); Albumin 4.0 g/dL (3.2-4.8); Alkaline Phosphatase 90 U/L (46-116); Anion Gap 10 (5-15); BUN/Creatinine Ratio 23.3 (10.0-20.0); Blood Urea Nitrogen 14 mg/dL (9-23); Calcium 9.3 mg/dL (8.7-10.4); Carbon Dioxide 27 mmol/L (20-31); Chloride 105 mmol/L (98-107); Glucose 101 mg/dL (74-106); Potassium 4.0 mmol/L (3.5-5.1); Sodium 142 mmol/L (136-145); Total Protein 6.5 g/dL (5.7-8.2)
[2024-11-20 06:19] LABS: Bilirubin, Total 0.4 mg/dL (0.2-1.0)
[2024-11-20] MEDS: REGADENOSON 0.4 MG/5 ML SYRG IV ONE ×2 (07:59)
[2024-11-20 08:09] LABS: INR 0.97 (0.9-1.15); Partial Thromboplastin Time 26.0 SEC (24.5-34.5); Prothrombin Time 10.3 sec (9.3-11.8)
[2024-11-20] MEDS: LOSARTAN POTASSIUM 50 MG TAB PO SCH (09:45)
[2024-11-20] MEDS: CITALOPRAM HYDROBR 20 MG TAB PO SCH (09:46)
[2024-11-20] MEDS: hydroCHLOROthiazide 25 MG TAB PO SCH (09:47)
[2024-11-20] MEDS: ATENOLOL 25 MG TAB PO SCH (09:49)
[2024-11-20] MEDS: GABAPENTIN 300 MG CAP PO SCH (09:50)
[2024-11-20] MEDS ORDERED: ATORVASTATIN 20 MG TAB PO SCH (10:00)
[2024-11-20] MEDS ORDERED: PATIENTS OWN MEDICATION (Losartan Potassium & Hydrochlo (Losartan Potassium/Hydroc) 1 TAB) PO SCH (10:00)
--- NOTE | 2024-11-20 11:38 | DVHSR ---
APPROVED REPORT Exam: Nuclear Stress Test BMI: 0 Stress Test Details HR Max Heart Rate (APMHR): 163.409487 bpm Target HR (85% APMHR): 138.614325 bpm BP ECG Stress ECG Conclusion lvef 63% normal perfusion scan no ischemia NM EXAM: Myocardial Perfusion REST/STRESS Imaging Protocol: Rest Tc-99m/Stress Tc-99m 2 days Resting Data Rest SPECT myocardial perfusion imaging was performed in supine position 45 minutes following the int ravenous injection of 16.9 mCi of Tc-99m Sestamibi. Time of rest injection: 15:20 Date: 11/19/2024 Time of rest imagin:05 Date: 11/19/2024 Administration Route: IV Administration Site: Right Arm Pharmacologic Stress Pharmacologic stress test was performed by injecting Regadenoson 0.4 mg IV push followed by the intra venous injection of 24.2 mCi of Tc-99m Sestamibi. Time of stress injection: 08:00 Date: 11/20/2024 Time of stress imagin:45 Date: 11/20/2024 Administration Route: IV Administration Site: Right Hand Gated Stress SPECT was performed 45 minutes after stress injection. The images were gated to evaluate regional wall motion and calculate left ventricular ejection fracti on. Stress only was performed in the Supine position. Comments TWO DAY STUDY Nuclear Conclusion Nuclear Findings: negative for ischemia lvef 63% normal perfusion scan no ischemia
--- NOTE | 2024-11-20 14:59 | DVHPN2 ---
Consult Progress Note Date Seen: Nov 20, 2024 Subjective Patient reports: Feels better Review of Systems: CVS:Normal, RESPIRATORY:Normal, NEURO:Normal Objective vital signs Vital Sign Date Time Temp Pulse Resp B/P (MAP) Pulse Ox O2 Delivery O2 Flow Rate FiO2 11/20/24 13:00 97.9 66 16 124/70 (88) 98 97.9 11/20/24 08:00 Room Air* 0 21 Total Intake and Output 11/19/24 11/19/24 11/20/24 15:00 23:00 07:00 Intake Total 200 ml Balance 200 ml medications Current Medications Medications Dose Ordered Sig/Mechelle Route Start Time Stop Time Status Last Admin Dose Admin Sodium Chloride 10 ml Q8HR IV 11/19/24 14:00 11/20/24 06:37 10 ML Ondansetron HCl 4 mg Q4HP PRN IV 11/19/24 13:45 Acetaminophen 650 mg Q6HP PRN PO 11/19/24 13:45 Nitroglycerin 0.4 mg Q5MINP PRN SL 11/19/24 13:45 Morphine Sulfate 2 mg Q30M PRN IV 11/19/24 13:45 Atenolol 25 mg DAILY PO 11/20/24 10:00 11/20/24 09:49 25 MG Citalopram Hydrobromide 20 mg DAILY PO 11/20/24 10:00 11/20/24 09:46 20 MG Ibuprofen 800 mg BIDPRN PRN PO 11/19/24 13:45 Patient Own Medication 1 tab DAILY PO 11/20/24 10:00 UNV Gabapentin 300 mg DAILY PO 11/20/24 10:00 11/20/24 09:50 300 MG Losartan Potassium 100 mg DAILY PO 11/20/24 10:00 11/20/24 09:45 100 MG Hydrochlorothiazide 12.5 mg DAILY PO 11/20/24 10:00 11/20/24 09:47 12.5 MG Atorvastatin Calcium 40 mg HS PO 11/19/24 22:00 11/19/24 21:43 40 MG Aspirin 81 mg DAILY PO 11/20/24 10:00 11/20/24 09:46 81 MG Examination: LUNGS:Normal, CVS:Normal, NEURO:Normal laboratory and microbiology Laboratory Tests 11/20/24 05:19 Test 11/20/24 05:19 Range/Units Serum Glucose 101 74-106 mg/dL Problem List/Assessment/Plan Problem List/Assessment/Plan Chest pain rule out coronary artery disease Rule out structural heart disease Hypertension Dyslipidemia Hx tobacco use Obesity Plan/Recommendation (Dr. Richardson) The patient presented with a Heart Score of 4 placing her at a moderate risk for major cardiac events for which she underwent a non-ischemic Cardiolite revealing a LVEF of 63%. Continue lipid lowering agent, blood pressure control and risk factor modification including diet, exercise, and weight loss. There is no further cardiac work-up indicated at this time. Kindly call with any questions or concerns. Thank you for allowing us to participate in this patient's care. This medical document was created using an electronic medical record system with voice recognition software and computerized dictation system. Although this document has been carefully reviewed, there might still be some phonetic and typographical errors. Occasional wrong-word or ``sound-alike substitutions may have occurred due to the inherent limitations of voice recognition software. These areas are purely typographical due to imperfections of the software programs and do not reflect any compromise in the patient's medical care. Please read the chart carefully and recognize, using context, where these substitutions have occurred. Plan discussed with: Patient, Other Date of Service: Nov 20, 2024 Billing Provider: MANDI RYAN Cardiology Common Codes: 61863-FIK/[id number] SAME DATE (Mod) MANDI RYAN Nov 20, 2024 14:59
[2024-11-20 15:43] LABS: Urine Protein, UAD Negative (Negative)
[2024-11-20 15:56] LABS: Amphetamine Screen, Urine Neg (NEGATIVE); Barbiturate Scree,Urine Neg (NEGATIVE); Benzodiazephine Screen, Urine Neg (NEGATIVE); Cannabinoid Screen, Urine Neg (NEGATIVE); Cocaine Screen, Urine Neg (NEGATIVE); Opiate Scree,Urine Neg (NEGATIVE); Phencyclidine Screen, Urine Neg (NEGATIVE)
--- NOTE | 2024-11-20 17:07 | DVHSR ---
APPROVED REPORT EXAM: Two-dimensional and M-mode echocardiogram with Doppler and color Doppler. Blood Pressure: 144/86 mmHg INDICATION EF RISK FACTORS Obesity: Height: 5'1", Weight: 207 DIMENSIONS LVDd4.6 (3.8-5.7cm)LA (2D)4.1 (1.9-4.0cm)Aortic Root3.8 (2.0-3.7cm) LVDs2.5 (2.5-4.0cm)LA (MM) (1.9-4.0cm)Aortic Cusp Exc2.0 (1.5-2.0cm) EF (%) 65.0 (55-70%)Rt. Atrium4.5 (1.9-4.0cm)Asc. Aorta cm IVSd1.0 (0.7-1.1cm)RV (D)4.1 (1.8-2.4cm) PWd0.9 (0.7-1.1cm) Mitral Valve MitralMitral Stenosis E wave0.74m/sMV Mean GR.mmHg A wave0.96m/sMV Peak GR.mmHg E/A ratio0.82D MVAcm2 DECEL [id number] 1/2 [place] Aortic Valve Aortic ValveAortic Stenosis V10.96m/[place] Mean GR.4mmHg V21.39m/[place] Peak GR.8mmHg LVOT Diameter2.1 (1.8-2.4cm)Doppler AVA2.39cm2 Pulmonic Valve V21.00m/s Other Information Technically limited study due to body habitus. Conclusion Technically good study. Sinus rhythm. Concentric LVH with biatrial enlargement and aortic root enlargement. Dilation of the sinuses of Jodi armando. Valves appear to be structurally normal. Left ventricular function is preserved at 60% with normal RV function. Mild TR. No pericardial effusion masses or vegetations.
--- NOTE | 2024-11-20 17:21 | DVHPNRES ---
Progress Note Date Seen: Nov 20, 2024 Resident Creating Document: GREYSON MILLER RESIDENT Medical Necessity Reason Pt with a Central, PICC or Fol: No Subjective Review of Systems This is a 59-year-old female with past medical history of hypertension, hyperlipidemia and anxiety who presented to the hospital with the complaint of chest pain. The patient was sleeping at night when she woke up to left sided chest pain which he describes as a 7 to 8/10 on intensity, sharp and shooting in character and radiating upwards to the neck and left shoulder. Patient also had sweating, clammy skin and little shortness of breath. The patient states that the pain is now or 2 /10 in intensity. Pain lasted for 45 minutes before she could get medical help via the EMS. Her tropes were negative x3. Echo was done and revealed Concentric LVH with biatrial enlargement and aortic root enlargement, Dilation of the sinuses of Valsalva, LVEF of 63%. Cardiolite stress test was done which was negative for ischemia. PMH: Arreguin's palsy 3 years ago, hypertension, hyperlipidemia, anxiety, neuropathic PSH: Cholecystectomy, hysterectomy, tubal ligation Smoking: Quit 1 year ago Alcohol: Denies Drugs: Denies Lives with friends Patient seen and examined at bedside. Patient is alert and oriented to time, place person and responding to all questions. Eyes: No Pain, No Vision change, No Conjunctivae inflammation, No Eyelid inflammation, No Redness ENT: No Ear pain, No Ear discharge, No Nose pain, No Nose discharge, No Nose congestion, No Mouth pain, No Mouth swelling, No Throat pain, No Throat swelling Cardiovascular: No Chest Pain, No Palpitations, No Orthopnea, No Paroxysmal No Dyspnea, No Edema, No Lt Headedness Respiratory: No Cough, No Dry, No Shortness of breath, No SOB with exertion, No Wheezing, No Hemoptysis, No Pleuritic Pain, No Sputum Gastrointestinal: No Nausea, No Vomiting, No Abdominal Pain, No Diarrhea, No Constipation, No Melena, No Hematochezia Genitourinary: No Dysuria, No Frequency, No Incontinence, No Hematuria, No Retention Objective vital signs Vital Sign Date Time Temp Pulse Resp B/P (MAP) Pulse Ox O2 Delivery O2 Flow Rate FiO2 11/20/24 16:59 97.8 61 18 135/76 (95) 100 97.8 11/20/24 08:00 Room Air* 0 21 Total Intake and Output 11/19/24 11/19/24 11/20/24 15:00 23:00 07:00 Intake Total 200 ml Balance 200 ml medications Current Medications Medications Dose Ordered Sig/Mechelle Route Start Time Stop Time Status Last Admin Dose Admin Sodium Chloride 10 ml Q8HR IV 11/19/24 14:00 11/20/24 06:37 10 ML Ondansetron HCl 4 mg Q4HP PRN IV 11/19/24 13:45 Acetaminophen 650 mg Q6HP PRN PO 11/19/24 13:45 Nitroglycerin 0.4 mg Q5MINP PRN SL 11/19/24 13:45 Morphine Sulfate 2 mg Q30M PRN IV 11/19/24 13:45 Atenolol 25 mg DAILY PO 11/20/24 10:00 11/20/24 09:49 25 MG Citalopram Hydrobromide 20 mg DAILY PO 11/20/24 10:00 11/20/24 09:46 20 MG Ibuprofen 800 mg BIDPRN PRN PO 11/19/24 13:45 Patient Own Medication 1 tab DAILY PO 11/20/24 10:00 UNV Gabapentin 300 mg DAILY PO 11/20/24 10:00 11/20/24 09:50 300 MG Losartan Potassium 100 mg DAILY PO 11/20/24 10:00 11/20/24 09:45 100 MG Hydrochlorothiazide 12.5 mg DAILY PO 11/20/24 10:00 11/20/24 09:47 12.5 MG Atorvastatin Calcium 40 mg HS PO 11/19/24 22:00 11/19/24 21:43 40 MG Aspirin 81 mg DAILY PO 11/20/24 10:00 11/20/24 09:46 81 MG Pantoprazole Sodium 40 mg DAILY IV 11/21/24 10:00 UNV Examination General Appearance: Cooperative. Well developed. Well nourished. NAD Head Exam: Normal inspection Neck Exam: Normal inspection. Non-tender. Normal alignment Pulmonary/Respiratory: Chest non-tender. Clear bilateral breath sounds, no crackles, no wheezing. Cardiovascular/Chest: Regular rate and rhythm. No murmurs. No JVD. Peripheral Pulses: 2+ Radial (R). 2+ Radial (L). 2+ Pedal (R). 2+ Pedal (L) Abdominal Exam: Normal bowel sounds. Soft. normal abdomen, no visible veins, Nontender. No hepatospenomegaly. No masses Ankle Exam: Negative ankle edema Lower extremities: Negative lower extremity edema Neuro/Mental Status: A&O x4. Coherent. Thoughts/Psych: Normal thought pattern. Appropriate mood and affect. Good judgement and insight Skin Exam: Normal inspection. Normal color. Warm. Dry laboratory and microbiology Laboratory Tests 11/20/24 05:19 Test 11/20/24 05:19 Range/Units Serum Glucose 101 74-106 mg/dL Labs and/or images reviewed: Labs reviewed by me, Image(s) reviewed by me Problem List/Assessment/Plan Problem List/Assessment/Plan Chest pain rule out coronary artery disease Atypical chest pain likely stable angina Ruled out structural heart disease Hypertension uncontrolled Dyslipidemia - Ekg showed no acute changes - troponins x3 negative - chest pain protocol - Heart Score of 4 - cardiology on board, performed stress test negative for ischemia - and the EF 63% - risk factor modification - continue Lipitor - monitor blood pressure Hx tobacco use Obesity- healthy lifestyle modifications PUD prophylaxis: protonix DVT prophylaxis: SCDs Goals of care: Full code, discussed for >16 minutes Plan discussed with patient Plan discussed with Dr Philippe Plan discussed with: Patient Date of Service: Nov 20, 2024 Billing Provider: POLLO PHILIPPE MD Common Visit Codes: [id number] INP/OBS CARE(HIGH) Secondary Visit Codes: [id number] CARE PLAN 30 MINUTES GREYSON MILLER RESIDENT Nov 20, 2024 17:21 POLLO PHILIPPE MD Nov 21, 2024 11:01
[2024-11-20] MEDS: ACETAMINOPHEN 325 MG TAB PO PRN (18:23)
[2024-11-21 01:00] VITALS: BP 135/86; PULSE 64; RESP 18; TEMP 97.8; O2SAT 94
--- NOTE | 2024-11-21 01:37 | DVHPN2 ---
Consult Progress Note Date Seen: Nov 20, 2024 Subjective Patient reports: Feels better Review of Systems: CVS:Normal, RESPIRATORY:Normal, NEURO:Normal Other Systems: Patient was seen and evaluated in follow up. Patient complains of generalized pain. Patient underwent a non-ischemic Cardiolite revealing a LVEF of 63%. CBC and CMP are WNL. Telemetry reviewed. Objective vital signs Vital Sign Date Time Temp Pulse Resp B/P (MAP) Pulse Ox O2 Delivery O2 Flow Rate FiO2 11/20/24 13:00 97.9 66 16 124/70 (88) 98 97.9 11/20/24 08:00 Room Air* 0 21 Total Intake and Output 11/19/24 11/19/24 11/20/24 15:00 23:00 07:00 Intake Total 200 ml Balance 200 ml medications Current Medications Medications Dose Ordered Sig/Mechelle Route Start Time Stop Time Status Last Admin Dose Admin Sodium Chloride 10 ml Q8HR IV 11/19/24 14:00 11/20/24 06:37 10 ML Ondansetron HCl 4 mg Q4HP PRN IV 11/19/24 13:45 Acetaminophen 650 mg Q6HP PRN PO 11/19/24 13:45 Nitroglycerin 0.4 mg Q5MINP PRN SL 11/19/24 13:45 Morphine Sulfate 2 mg Q30M PRN IV 11/19/24 13:45 Atenolol 25 mg DAILY PO 11/20/24 10:00 11/20/24 09:49 25 MG Citalopram Hydrobromide 20 mg DAILY PO 11/20/24 10:00 11/20/24 09:46 20 MG Ibuprofen 800 mg BIDPRN PRN PO 11/19/24 13:45 Patient Own Medication 1 tab DAILY PO 11/20/24 10:00 UNV Gabapentin 300 mg DAILY PO 11/20/24 10:00 11/20/24 09:50 300 MG Losartan Potassium 100 mg DAILY PO 11/20/24 10:00 11/20/24 09:45 100 MG Hydrochlorothiazide 12.5 mg DAILY PO 11/20/24 10:00 11/20/24 09:47 12.5 MG Atorvastatin Calcium 40 mg HS PO 11/19/24 22:00 11/19/24 21:43 40 MG Aspirin 81 mg DAILY PO 11/20/24 10:00 11/20/24 09:46 81 MG Examination: GENERAL:Normal, HEENT:Normal, NECK:Normal, LUNGS:Normal, CVS:Normal, ABDOMEN:Normal, NEURO:Normal laboratory and microbiology Laboratory Tests 11/20/24 05:19 Test 11/20/24 05:19 Range/Units Serum Glucose 101 74-106 mg/dL Problem List/Assessment/Plan Problem List/Assessment/Plan Problem List Chest pain rule out coronary artery disease. Rule out structural heart disease. Hypertension. Dyslipidemia. History of tobacco use. Obesity. Plan/Recommendation Continued all current supportive medical care. Patient has been seen by Ivonne Hebert NP on my behalf, her and I discussed the plan with the patient. The patient presented with a Heart Score of 4 placing her at a moderate risk for major cardiac events for which she underwent a non-ischemic Cardiolite revealing a LVEF of 63%. Continue lipid lowering agent, blood pressure control and risk factor modification including diet, exercise, and weight loss. There is no further cardiac work-up indicated at this time. Additional plan as per the hospital course. Plan discussed with: Patient Date of Service: Nov 20, 2024 Billing Provider: TAWNY CAMP MD Cardiology Common Codes: [id number] [facility](High TAWNY CAMP MD Nov 20, 2024 15:11
[2024-11-21 05:00] VITALS: BP 142/99; PULSE 65; RESP 18; TEMP 97.8; O2SAT 97
[2024-11-21 05:46] LABS: Hematocrit 42.2 % (36.0-46.0); Hemoglobin 14.3 g/dL (12.2-16.2); Mean Corpuscular Hemoglobin 28.4 pg (28.0-32.0); Mean Corpuscular Volume 83.8 fL (80.0-100.0); Nucleated Red Blood Cells % 0.1 %
[2024-11-21 05:56] LABS: Chloride 104 mmol/L (98-107); Potassium 4.0 mmol/L (3.5-5.1); Sodium 139 mmol/L (136-145)
[2024-11-21 05:58] LABS: Anion Gap 8 (5-15); Calcium 9.0 mg/dL (8.7-10.4); Carbon Dioxide 27 mmol/L (20-31)
[2024-11-21 06:03] LABS: BUN/Creatinine Ratio 19.3 (10.0-20.0); Blood Urea Nitrogen 11 mg/dL (9-23); Glucose 93 mg/dL (74-106)
[2024-11-21 08:00] VITALS: PULSE 67; RESP 18; O2SAT 98
[2024-11-21] MEDS ORDERED: IBUP-1454 PO (08:27)
[2024-11-21] MEDS ORDERED: ATOR20TA50 PO (08:27)
[2024-11-21] MEDS ORDERED: ASPI-325 PO (08:27)
[2024-11-21 08:56] VITALS: BP 136/94; PULSE 67; RESP 18; TEMP 97.8; O2SAT 98
[2024-11-21 09:07] VITALS: BP 149/93; PULSE 74
[2024-11-21] MEDS: PANTOPRAZOLE 40 MG/10 ML VIAL INJ IV SCH (09:25)
--- NOTE | 2024-11-21 18:39 | DVHDSRES ---
Discharge Summary Date of Admission Resident Creating Document: GREYSON MILLER RESIDENT Nov 19, 2024 at 13:37 Date of Discharge: Nov 21, 2024 Admitting Diagnosis chest pain Labs/Diagnostic Data: Laboratory Results Test 11/21/24 05:14 11/20/24 15:10 11/20/24 05:19 11/19/24 08:17 White Blood Count 7.9 10^3/uL (4.4-10.8) Red Blood Count 5.04 10^6/uL (4.0-5.20) Hemoglobin 14.3 g/dL (12.2-16.2) Hematocrit 42.2 % (36.0-46.0) Mean Corpuscular Volume 83.8 fL (80.0-100.0) Mean Corpuscular Hemoglobin 28.4 pg (28.0-32.0) Mean Corpuscular Hemoglobin Concent 33.9 g/dL (32.0-36.0) Red Cell Distribution Width 14.7 % (11.8-14.3) Platelet Count 320 10^3/uL (140-450) Mean Platelet Volume 7.9 fL (6.9-10.8) Neutrophils (%) (Auto) 59.5 % (37.0-80.0) Lymphocytes (%) (Auto) 28.7 % (10.0-50.0) Monocytes (%) (Auto) 7.3 % (0.0-12.0) Eosinophils (%) (Auto) 3.6 % (0.0-7.0) Basophils (%) (Auto) 0.9 % (0.0-2.0) Neutrophils # (Auto) 4.7 10 ^3/uL (1.6-8.6) Lymphocytes # (Auto) 2.3 10 ^3/uL (0.4-5.4) Monocytes # (Auto) 0.6 10 ^3/uL (0-1.3) Eosinophils # (Auto) 0.3 10 ^3/uL (0-0.8) Basophils # (Auto) 0.1 10 ^3/uL (0-0.2) Nucleated Red Blood Cells 0.1 % Sodium Level 139 mmol/L (136-145) Potassium Level 4.0 mmol/L (3.5-5.1) Chloride Level 104 mmol/L (98-107) Carbon Dioxide Level 27 mmol/L (20-31) Anion Gap 8 (5-15) Blood Urea Nitrogen 11 mg/dL (9-23) Creatinine 0.57 mg/dL (0.550-1.02) Glomerular Filtration Rate Calc 106 mL/min (>90) BUN/Creatinine Ratio 19.3 (10.0-20.0) Serum Glucose 93 mg/dL (74-106) Calcium Level 9.0 mg/dL (8.7-10.4) Urine Color Light-yellow (Yellow) Urine Clarity Clear (Clear) Urine pH 6.5 (5.0-9.0) Urine Specific Clarence 1.018 (1.001-1.035) Urine Protein Negative (Negative) Urine Ketones Negative (Negative) Urine Blood Negative /uL (Negative) Urine Nitrite Negative (Negative) Urine Bilirubin Negative (Negative) Urine Urobilinogen Normal mg/dL (Negative) Urine Leukocyte Esterase Negative /uL (Negative) Urine RBC 1 /hpf (0 - 4) Urine Microscopic WBC 3 /HPF (0-5) Urine Squamous Epithelial Cells Few /hpf (<5) Urine Bacteria Few /hpf (None Seen) Urine Hyaline Casts Few /lpf (0 - 2) Urine Glucose Normal mg/dL (Normal) Urine Opiates Screen Neg (NEGATIVE) Urine Fentanyl Screen Neg (NEGATIVE) Urine Barbiturates Screen Neg (NEGATIVE) Urine Phencyclidine Screen Neg (NEGATIVE) Urine Amphetamines Screen Neg (NEGATIVE) Urine Benzodiazepines Screen Neg (NEGATIVE) Urine Cocaine Screen Neg (NEGATIVE) Urine Cannabinoids Screen Neg (NEGATIVE) Prothrombin Time 10.3 sec (9.3-11.8) Prothrombin Time INR 0.97 (0.9-1.15) Activated Partial Thromboplast Time 26.0 SEC (24.5-34.5) Total Bilirubin 0.4 mg/dL (0.2-1.0) Aspartate Amino Transferase (AST) 19 U/L (13-40) Alanine Aminotransferase (ALT) 20 U/L (7-40) Alkaline Phosphatase 90 U/L (46-116) Total Protein 6.5 g/dL (5.7-8.2) Albumin 4.0 g/dL (3.2-4.8) Hemoglobin A1c 5.9 % A1C (<5.7) Troponin I High Sensitivity < 3 ng/L (</=34) B-Type Natriuretic Peptide 23.84 pg/mL (0-100) Test 11/19/24 06:11 11/19/24 05:05 Thyroid Stimulating Hormone (TSH) 1.59 uIU/mL (0.55-4.78) Magnesium Level 1.8 mg/dL (1.6-2.6) Triglycerides Level 313 mg/dL (< 150) Cholesterol Level 200 mg/dL (< 200) LDL Cholesterol 122 mg/dL (< 100) HDL Cholesterol 39 mg/dL (40-59) Other Laboratory Tests 11/21/24 05:14 Brief Hx & Hospital Course: This is a 59-year-old female with past medical history of hypertension, hyperlipidemia and anxiety who presented to the hospital with the complaint of chest pain. The patient was sleeping at night when she woke up to left sided chest pain which he describes as a 7 to 8/10 on intensity, sharp and shooting in character and radiating upwards to the neck and left shoulder. Patient also had sweating, clammy skin and little shortness of breath. The patient stated that the pain was 2 /10 in intensity the next day. Pain lasted for 45 minutes before she could get medical help via the EMS. Her tropes were negative x3. Echo was done and revealed Concentric LVH with biatrial enlargement and aortic root enlargement, Dilation of the sinuses of Valsalva, LVEF of 63%. Cardiolite stress test was done which was negative for ischemia. On the day of evaluation, the vitals were stable and the labs were within range patient was discharged as she was clinically stable to go home. All medications were explained to the patient and she demonstrated complete understanding of the same. PMH: Arreguin's palsy 3 years ago, hypertension, hyperlipidemia, anxiety, neuropathic PSH: Cholecystectomy, hysterectomy, tubal ligation Smoking: Quit 1 year ago Alcohol: Denies Drugs: Denies Lives with friends Patient seen and examined at bedside. Patient is alert and oriented to time, place person and responding to all questions. Eyes: No Pain, No Vision change, No Conjunctivae inflammation, No Eyelid inflammation, No Redness ENT: No Ear pain, No Ear discharge, No Nose pain, No Nose discharge, No Nose congestion, No Mouth pain, No Mouth swelling, No Throat pain, No Throat swelling Cardiovascular: No Chest Pain, No Palpitations, No Orthopnea, No Paroxysmal No Dyspnea, No Edema, No Lt Headedness Respiratory: No Cough, No Dry, No Shortness of breath, No SOB with exertion, No Wheezing, No Hemoptysis, No Pleuritic Pain, No Sputum Gastrointestinal: No Nausea, No Vomiting, No Abdominal Pain, No Diarrhea, No Constipation, No Melena, No Hematochezia Genitourinary: No Dysuria, No Frequency, No Incontinence, No Hematuria, No Retention General Appearance: Cooperative. Well developed. Well nourished. NAD Head Exam: Normal inspection Neck Exam: Normal inspection. Non-tender. Normal alignment Pulmonary/Respiratory: Chest non-tender. Clear bilateral breath sounds, no crackles, no wheezing. Cardiovascular/Chest: Regular rate and rhythm. No murmurs. No JVD. Peripheral Pulses: 2+ Radial (R). 2+ Radial (L). 2+ Pedal (R). 2+ Pedal (L) Abdominal Exam: Normal bowel sounds. Soft. normal abdomen, no visible veins, Nontender. No hepatospenomegaly. No masses Ankle Exam: Negative ankle edema Lower extremities: Negative lower extremity edema Neuro/Mental Status: A&O x4. Coherent. Thoughts/Psych: Normal thought pattern. Appropriate mood and affect. Good judgement and insight Skin Exam: Normal inspection. Normal color. Warm. Dry Operations or Procedures 1.PROCEDURE(s): CXRP - CHEST PORTABLE REASON: sob ORDER NUMBER(s): [id number], ACCESSION NUMBER(s): [id number] CHEST RADIOGRAPH Indication: sob Technique: Single frontal view of the chest was obtained COMPARISON: None FINDINGS: Lines and Tubes: None Lungs: Clear Pleura: No effusion. No pneumothorax. Cardiomediastinal contours: Unremarkable Bones: Unremarkable IMPRESSION: No acute disease. 2.PROCEDURE(s): CWMM - CARDIOLITE MULTIPLE REASON: Chest pain ORDER NUMBER(s): [id number], ACCESSION NUMBER(s): [id number] APPROVED REPORT Exam: Nuclear Stress Test BMI: 0 Stress Test Details HR Max Heart Rate (APMHR): 163.800939 bpm Target HR (85% APMHR): 138.920012 bpm BP ECG Stress ECG Conclusion lvef 63% normal perfusion scan no ischemia NM EXAM: Myocardial Perfusion REST/STRESS Imaging Protocol: Rest Tc-99m/Stress Tc-99m 2 days Resting Data Rest SPECT myocardial perfusion imaging was performed in supine position 45 minutes following the intravenous injection of 16.9 mCi of Tc-99m Sestamibi. Time of rest injection: 15:20 Date: 11/19/2024 Time of rest imagin:05 Date: 11/19/2024 Administration Route: IV Administration Site: Right Arm Pharmacologic Stress Pharmacologic stress test was performed by injecting Regadenoson 0.4 mg IV push followed by the intravenous injection of 24.2 mCi of Tc-99m Sestamibi. Time of stress injection: 08:00 Date: 11/20/2024 Time of stress imagin:45 Date: 11/20/2024 Administration Route: IV Administration Site: Right Hand Gated Stress SPECT was performed 45 minutes after stress injection. The images were gated to evaluate regional wall motion and calculate left ventricular ejection fraction. Stress only was performed in the Supine position. Comments TWO DAY STUDY Nuclear Conclusion Nuclear Findings: negative for ischemia lvef 63% normal perfusion scan no ischemia 3.PROCEDURE(s): ECIDC - ECHO 2D MODE CARDIAC DOP REASON: ef ORDER NUMBER(s): [id number], ACCESSION NUMBER(s): [id number] APPROVED REPORT EXAM: Two-dimensional and M-mode echocardiogram with Doppler and color Doppler. Blood Pressure: 144/86 mmHg INDICATION EF RISK FACTORS Obesity: Height: 5'1", Weight: 207 DIMENSIONS LVDd 4.6 (3.8-5.7cm) LA (2D) 4.1 (1.9-4.0cm) Aortic Root 3.8 (2.0- 3.7cm) LVDs 2.5 (2.5-4.0cm) LA (MM) (1.9-4.0cm) Aortic Cusp Exc 2.0 (1.5- 2.0cm) EF (%) 65.0 (55-70%) Rt. Atrium 4.5 (1.9-4.0cm) Asc. Aorta cm IVSd 1.0 (0.7-1.1cm) RV (D) 4.1 (1.8-2.4cm) PWd 0.9 (0.7-1.1cm) Mitral Valve Mitral Mitral Stenosis E wave 0.74m/s MV Mean GR. mmHg A wave 0.96m/s MV Peak GR. mmHg E/A ratio 0.8 2D MVA cm2 DECEL Time 296ms PRESS 1/2 Time ms Aortic Valve Aortic Valve Aortic Stenosis V1 0.96m/s AO Mean GR. 4mmHg V2 1.39m/s AO Peak GR. 8mmHg LVOT Diameter 2.1 (1.8-2.4cm) Doppler ISMA 2.39cm2 Pulmonic Valve V2 1.00m/s Other Information Technically limited study due to body habitus. Conclusion Technically good study. Sinus rhythm. Concentric LVH with biatrial enlargement and aortic root enlargement. Dilation of the sinuses of Valsalva. Valves appear to be structurally normal. Left ventricular function is preserved at 60% with normal RV function. Mild TR. No pericardial effusion masses or vegetations. Condition at Discharge: Stable Final Diagnosis/Problems List Chest pain ruled out coronary artery disease Atypical chest pain likely stable angina Ruled out structural heart disease Hypertension uncontrolled Dyslipidemia History of tobacco use Obesity- grade 2 Discharge Disposition: Home Discharge Instruct/Medications Diet: Cardiac 2g Na,low cholest Activity: No Restrictions, As Tolerated Follow Up/Referral: follow up with pcp Scheduled Aspirin (Aspirin Low Dose), 81 MG PO DAILY Atenolol (Atenolol), 1 TAB PO DAILY, (Reported) Atorvastatin Calcium (Atorvastatin Calcium), 40 MG PO HS Citalopram Hydrobromide (Citalopram Hydrobromide), 1 TAB PO DAILY, (Reported) Gabapentin (Gabapentin), 1 CAP PO DAILY, (Reported) Losartan Potassium & Hydrochlo (Losartan Potassium/Hydroc), 1 TAB PO DAILY, (Reported) Scheduled PRN Ibuprofen (Ibuprofen), 600 MG PO BIDPRN PRN Ibuprofen Micronized (Ibuprofen), 1 TAB PO BIDPRN PRN, (Reported) Discontinued Medications Atorvastatin Calcium (Atorvastatin Calcium), 1 TAB PO DAILY, (Reported) Docusate Sodium (Docusate Sodium), 100 MG PO BID Ferrous Sulfate (Ferrous Sulfate), 325 MG PO TIDWM Levofloxacin (Levaquin), 500 MG PO DAILY Metronidazole (Flagyl), 500 MG PO TID Polyethylene Glycol (Miralax 17GM Pwd), 17 GM PO DAILY PRN Discharge Statement: "Patient was advised to return to the ER or call 911 if any headaches, dizziness, shortness of breath, chest pain, abdominal pain, bleeding, fevers, or worsening of medical condition. Patient was counseled about treatment plan, medications, possible side effects, patientverbalized understanding. All questions were answered to the best of my ability. This discharge took greater then 30 minutes in planning, reviewing documentation, counseling the patient, and discussing with other team members." ASSESSMENT ASSESSMENT Assessment chest pain GREYSON MILLER RESIDENT Nov 21, 2024 18:39
--- NOTE | 2024-11-21 19:52 | DVHPN2 ---
Progress Note - Dictate Date Seen: Nov 21, 2024 Medical Necessity Reason Pt with a Central, PICC or Fol: No Subjective Patient was seen and evaluated in follow up. Patient has no new complaints at this time. Patient denies any cardiac symptoms. Patient is cardiac stable for discharge. Telemetry reviewed. vital signs Vital Sign Date Time Temp Pulse Resp B/P (MAP) Pulse Ox O2 Delivery O2 Flow Rate FiO2 11/21/24 09:30 67 136/94 11/21/24 08:56 97.8 18 98 97.8 11/21/24 08:00 Room Air* 0 21 Total Intake and Output 11/20/24 11/20/24 11/21/24 15:00 23:00 07:00 Intake Total 400 ml 240 ml Balance 400 ml 240 ml medications Current Medications Medications Dose Ordered Sig/Mechelle Route Start Time Stop Time Status Last Admin Dose Admin Patient Own Medication 1 tab DAILY PO 11/20/24 10:00 UNV objective GENERAL: Alert and oriented x 3. No acute distress. EYES: PERRL, EOMI. Anicteric. HENT: Moist mucous membranes. LUNGS: Clear to auscultation bilaterally. CARDIOVASCULAR: Regular rate and rhythm. ABDOMEN: Soft, nontender and nondistended. EXTREMITIES: No edema. NEUROLOGIC: No focal neurological deficits. SKIN: Warm, dry. laboratory and microbiology Laboratory Tests 11/21/24 05:14 Test 11/21/24 05:14 Range/Units Serum Glucose 93 74-106 mg/dL Problem List Chest pain rule out coronary artery disease. Rule out structural heart disease. Hypertension. Dyslipidemia. History of tobacco use. Obesity. Assessment/Plan Continued all current supportive medical care. GI prophylactics. Aspirin. Losartan. Nitro SL. Morphine for pain management. Additional plan as per the hospital course. Plan discussed with: Patient TAWNY CAMP MD Nov 21, 2024 12:28
== END 2024-11-21 09:56 | disposition home or self-care (01) | DRG 198 ==
LOC: ER 04:53 → EDBD 04:53 → OVERFLOW 13:37 → TELE-WESTW 22:18
PROVIDERS: ADMIT Student in an Organized Health Care Education/Training Program; ATTEND Emergency Medicine
DX: I20.89 Other forms of angina pectoris (principal); E10.42 Type 1 diabetes mellitus with diabetic polyneuropathy; E66.9 Obesity, unspecified; I10 Essential (primary) hypertension; Z68.41 Body mass index [BMI] 40.0-44.9, adult; E78.5 Hyperlipidemia, unspecified; F17.210 Nicotine dependence, cigarettes, uncomplicated; F41.9 Anxiety disorder, unspecified; Z90.710 Acquired absence of both cervix and uterus; Z83.3 Family history of diabetes mellitus; Z79.4 Long term (current) use of insulin; I25.2 Old myocardial infarction; Z90.49 Acquired absence of other specified parts of digestive tract
CPT/HCPCS: 36415; 71045; 78452; 80048; 80053; 80061; 80307; 81001; 83036; 83735; 83880; 84443; 84484; 85025; 85610; 85730; 93005; 93017; 93306; 99291; 99292; G0378; J2470